=== PATIENT | male | born 1970 | race Caucasian/White ===

== ENCOUNTER → 2019-10-02 | Outpatient (CLI) | payer OTHER ==
--- NOTE | 2019-10-02 16:14 | US ---
EXAMINATION TYPE: US extremity nonvasc mass LT DATE OF EXAM: 10/02/2019 COMPARISON: NONE CLINICAL HISTORY: 49-year-old male R22.9 LUMP. Palpable left lateral thigh, located high near hip for several years. Technique: Targeted scanning directly over palpable area, upper left lateral thigh. FINDINGS: Floor Representative notes: There is a 2.9 x 1.0 x 3.9 cm isoechoic, circumscribed and ovoid lesion without in ternal flow. This is situated just deep to the skin surface within the subcutaneous adipose. IMPRESSION: Targeted scanning along the lateral upper left thigh at the palpable site shows a probable 3.9 x 2.9 cm subcutaneous lipoma. If there is growth or the area is symptomatic, surgical excision can be consi dered.
== END | disposition home or self-care (01) ==
LOC: RADUSWWP 15:23
PROVIDERS: ATTEND Internal Medicine
DX: R22.42 Localized swelling, mass and lump, left lower limb (principal)

== ENCOUNTER → 2022-09-06 | Outpatient (CLI) | payer OTHER ==
[~2022-09-06] MED LIST: SODIUM CHLORIDE 0.9% 500 ML 500 ML in EMPTY BAG 1 BAG IV PRN
[2022-09-06 10:41] VITALS: RESP 16
[2022-09-06 10:54] LABS: HCT 49.9 % (39.0-53.0); HGB 16.9 gm/dL (13.0-17.5); MCH 29.4 pg (25.0-35.0); MCHC 33.9 g/dL (31.0-37.0); MCV 86.7 fL (80.0-100.0); Mean Platelet Volume 8.7; Platelet Count 181 k/uL (150-450); RBC 5.76 m/uL (4.30-5.90); RDW 12.3 % (11.5-15.5); WBC 7.2 k/uL (3.8-10.6)
[2022-09-06 11:26] VITALS: BP 125/83; PULSE 84; TEMP 98
== END ==
LOC: PROCWHC3 10:32 → EDSTATUS 11:30
PROVIDERS: ATTEND Family Medicine
DX: D45 Polycythemia vera (principal)
CPT/HCPCS: 36415; 85027; 99195

== ENCOUNTER → 2022-12-22 | Outpatient (CLI) | payer BC, OTHER ==
[2022-12-22 07:49] LABS: Basophils % (A) 0 %; Eosinophils # (A) 0.2 k/uL (0-0.7); Eosinophils % (A) 2 %; HCT 53.4 % (39.0-53.0); HGB 16.9 gm/dL (13.0-17.5); Lymphocytes # (A) 1.5 k/uL (1.0-4.8); Lymphocytes % (A) 19 %; MCH 28.7 pg (25.0-35.0); MCHC 31.7 g/dL (31.0-37.0); MCV 90.4 fL (80.0-100.0); Mean Platelet Volume 8.5; Monocytes # (A) 0.5 k/uL (0-1.0); Monocytes % (A) 6 %; Neutrophils # (A) 5.6 k/uL (1.3-7.7); Neutrophils % (A) 71 %; Platelet Count 209 k/uL (150-450); RBC 5.91 m/uL (4.30-5.90); RDW 12.4 % (11.5-15.5); WBC 7.9 k/uL (3.8-10.6)
[2022-12-22 08:00] VITALS: PULSE 75; RESP 16; TEMP 98.2
[2022-12-22 08:04] LABS: ALT 26 U/L (4-49); AST 24 U/L (17-59); African American GFR (CKD) >90 (>60 ml/min/1.73 sqM); Albumin 4.2 g/dL (3.5-5.0); Alkaline Phosphatase 64 U/L (38-126); Anion Gap 6 mmol/L; Blood Urea Nitrogen 12 mg/dL (9-20); Calcium 8.7 mg/dL (8.4-10.2); Carbon Dioxide 30 mmol/L (22-30); Chloride 104 mmol/L (98-107); Glucose 91 mg/dL (74-99); Non-African American GFR(CKD) >90 (>60 ml/min/1.73 sqM); Potassium 4.4 mmol/L (3.5-5.1); Sodium 140 mmol/L (137-145); Total Bilirubin 0.8 mg/dL (0.2-1.3)
[2022-12-22 08:33] VITALS: BP 125/84
[2022-12-22 18:37] LABS: Chol/HDL Ratio 4.31 Ratio; LDL Cholesterol,Calculated 152.7 mg/dL (0.0-131.0)
== END ==
LOC: PROCWHC3 07:07
PROVIDERS: ATTEND Family Medicine
DX: D75.1 Secondary polycythemia (principal); E78.00 Pure hypercholesterolemia, unspecified
CPT/HCPCS: 80061; 80053; 85025; 99195; 36415; G0103

== ENCOUNTER → 2023-04-12 | Outpatient (CLI) | payer BC ==
[2023-04-12 09:35] VITALS: RESP 16; TEMP 97.6
[2023-04-12 09:57] LABS: Basophils % (A) 0 %; Eosinophils # (A) 0.2 k/uL (0-0.7); Eosinophils % (A) 2 %; HCT 54.4 % (39.0-53.0); HGB 18.5 gm/dL (13.0-17.5); Lymphocytes % (A) 27 %; MCH 29.9 pg (25.0-35.0); Mean Platelet Volume 8.7; Monocytes # (A) 0.5 k/uL (0-1.0); Monocytes % (A) 7 %; Neutrophils # (A) 4.6 k/uL (1.3-7.7); Neutrophils % (A) 61 %; Platelet Count 211 k/uL (150-450); RBC 6.19 m/uL (4.30-5.90); RDW 12.6 % (11.5-15.5); WBC 7.4 k/uL (3.8-10.6)
[2023-04-12 10:24] VITALS: BP 137/93; PULSE 68
== END ==
LOC: PROCWHC3 09:17
PROVIDERS: ATTEND Family Medicine
DX: D75.1 Secondary polycythemia (principal)
CPT/HCPCS: 36415; 85025; 99195

== ENCOUNTER → 2023-05-24 | Outpatient (CLI) | payer BC ==
[2023-05-24 19:57] LABS: HCT 51.2 % (39.6-50.0); HGB 16.7 d/dL (13.0-17.0); MCH 28.4 pg (27.0-32.0); MCHC 32.6 d/dL (32.0-37.0); MCV 86.9 FL (80.0-97.0); Mean Platelet Volume 11.6 FL (9.5-12.2); NRBC Per 100 WBC 0 X 10*3/uL (0.00-0.01); Platelet Count 251 X 10*3/uL (140-440); RBC 5.89 X 10*6/uL (4.40-5.60); RDW 12.6 % (11.5-14.5); WBC 7.33 X 10*3/uL (4.50-10.00)
[2023-05-24 20:39] LABS: Insulin Level 9.2 mIU/mL (3.0-25.0)
[2023-05-24 20:58] LABS: % Iron Saturation 26.75 (15.00-50.00); ALT 34 U/L (10-49); AST 23 U/L (14-35); Albumin 4.5 d/dL (3.8-4.9); Albumin/Globulin Ratio 2.05 Ratio (1.60-3.17); Alkaline Phosphatase 67 U/L (41-126); BUN/Creat Ratio 10.64 Ratio (12.00-20.00); Blood Urea Nitrogen 11.7 mg/dL (9.0-27.0); Calcium 9.4 mg/dL (8.7-10.3); Carbon Dioxide 26.5 mmol/L (21.6-31.8); Chloride 105 mmol/L (96-109); Ferritin 42.8 ng/mL (22.0-322.0); GGT 25 U/L (0-73); Globulin 2.2 d/dL (1.6-3.3); Glucose 87 mg/dL (70-110); Iron 88 UG/DL (65-175); LDL Cholesterol,Calculated 117.9 mg/dL (0.0-131.0); Potassium 4.4 mmol/L (3.5-5.5); Sodium 144 mmol/L (135-145); T4, Free (Free Thyroxine) 1.22 ng/dL (0.80-1.80); Testosterone >1400.00 ng/dL (86.98-780.10); Total Bilirubin 0.4 mg/dL (0.3-1.2); Total Iron Binding Capacity 329 UG/DL (228-460); Total Protein 6.7 d/dL (6.2-8.2)
[2023-05-24 21:03] LABS: Erythrocyte Sedimentation Rate 5 mm/Hr (0-20)
[2023-05-24 21:11] LABS: C Reactive Protein, High Sens <0.150 mg/L (0.000-3.000); Estradiol <20.0 pg/mL
[2023-05-24 23:08] LABS: Thyroid Peroxidase Antibodies <9.0 U/mL (0.0-33.0)
== END | disposition home or self-care (01) ==
LOC: LABWHC1 13:06
PROVIDERS: ATTEND Physician Assistant
DX: I10 Essential (primary) hypertension (principal); D64.9 Anemia, unspecified; M06.9 Rheumatoid arthritis, unspecified; R73.09 Other abnormal glucose; E55.9 Vitamin D deficiency, unspecified; E23.7 Disorder of pituitary gland, unspecified; E78.49 Other hyperlipidemia; E03.9 Hypothyroidism, unspecified; N41.9 Inflammatory disease of prostate, unspecified; E72.10 Disorders of sulfur-bearing amino-acid metabolism, unspecified; E53.9 Vitamin B deficiency, unspecified
CPT/HCPCS: 36415; 80053; 80061; 82306; 82533; 82607; 82627; 82670; 82728; 82977; 83036; 83090; 83525; 83540; 83550; 84153; 84402; 84403; 84439; 84443; 84481; 85027; 85652; 86141; 86376; 86800

== ENCOUNTER → 2023-09-14 | Outpatient (CLI) | payer BC ==
[2023-09-14 13:16] LABS: HCT 52.1 % (39.0-53.0); HGB 17.5 gm/dL (13.0-17.5); MCH 29.4 pg (25.0-35.0); MCHC 33.5 g/dL (31.0-37.0); MCV 87.6 fL (80.0-100.0); Mean Platelet Volume 8.6; Platelet Count 196 k/uL (150-450); RBC 5.95 m/uL (4.30-5.90); RDW 12.9 % (11.5-15.5); WBC 7.8 k/uL (3.8-10.6)
[2023-09-14 13:22] VITALS: RESP 16; TEMP 98
[2023-09-14 14:20] VITALS: BP 134/84; PULSE 82
== END ==
LOC: PROCWHC3 12:42
PROVIDERS: ATTEND Physician Assistant
DX: D75.1 Secondary polycythemia (principal)
CPT/HCPCS: 36415; 85027; 99195

== ENCOUNTER → 2023-12-14 | Outpatient (CLI) | payer BC ==
[2023-12-14 07:56] LABS: HCT 52.9 % (39.0-53.0); HGB 17.2 gm/dL (13.0-17.5); MCH 28.2 pg (25.0-35.0); MCHC 32.5 g/dL (31.0-37.0); MCV 86.5 fL (80.0-100.0); Mean Platelet Volume 8.9; Platelet Count 191 k/uL (150-450); RBC 6.11 m/uL (4.30-5.90); RDW 13.4 % (11.5-15.5); WBC 7.9 k/uL (3.8-10.6)
[2023-12-14 08:08] VITALS: RESP 16; TEMP 97.5
[2023-12-14 08:58] VITALS: BP 137/87; PULSE 76
[2023-12-14 19:49] LABS: HIV 2 AB Non-Reactive (Non-Reactive); HIV AB P24 Non-Reactive (Non-Reactive); HIV P24 AG Non-Reactive (Non-Reactive)
== END ==
LOC: PROCWHC3 07:28
PROVIDERS: ATTEND Physician Assistant
DX: D75.1 Secondary polycythemia (principal); Z11.4 Encounter for screening for human immunodeficiency virus [HIV]
CPT/HCPCS: 36415; 85027; 87390; 99195

== ENCOUNTER → 2024-02-28 | Outpatient (CLI) | payer BC ==
[2024-02-28 08:07] VITALS: TEMP 98
[2024-02-28 08:33] LABS: HCT 54.9 % (39.0-53.0); HGB 17.4 gm/dL (13.0-17.5); MCH 28.1 pg (25.0-35.0); MCHC 31.6 g/dL (31.0-37.0); MCV 88.8 fL (80.0-100.0); Platelet Count 202 k/uL (150-450); RBC 6.19 m/uL (4.30-5.90); RDW 13.6 % (11.5-15.5); WBC 7.5 k/uL (3.8-10.6)
[2024-02-28 08:59] VITALS: BP 144/88; PULSE 90; RESP 16
== END ==
LOC: PROCWHC3 07:51
PROVIDERS: ATTEND Physician Assistant
DX: D75.1 Secondary polycythemia (principal)
CPT/HCPCS: 36415; 85027; 99195

== ENCOUNTER → 2024-05-03 | Outpatient (CLI) | payer BC ==
[2024-05-03 08:57] VITALS: RESP 16
[2024-05-03 09:35] VITALS: TEMP 98.2
[2024-05-03 09:35] LABS: HGB 17.4 gm/dL (13.0-17.5); MCH 28.7 pg (25.0-35.0); MCHC 32.7 g/dL (31.0-37.0); MCV 87.5 fL (80.0-100.0); Mean Platelet Volume 7.8; Platelet Count 241 k/uL (150-450); RBC 6.06 m/uL (4.30-5.90); RDW 13.1 % (11.5-15.5); WBC 8.2 k/uL (3.8-10.6)
[2024-05-03 10:03] VITALS: BP 138/94; PULSE 62
[2024-05-03 11:24] LABS: HCT 53.7 % (39.0-53.0); HGB 17.3 gm/dL (13.0-17.5); MCH 28.3 pg (25.0-35.0); MCHC 32.3 g/dL (31.0-37.0); MCV 87.7 fL (80.0-100.0); Mean Platelet Volume 8.6; Platelet Count 254 k/uL (150-450); RBC 6.12 m/uL (4.30-5.90); RDW 13.1 % (11.5-15.5); WBC 8.1 k/uL (3.8-10.6)
[2024-05-03 11:39] LABS: ALT 39 U/L (4-49); AST 33 U/L (17-59); African American GFR (CKD) >90 (>60 ml/min/1.73 sqM); Albumin 4.6 g/dL (3.5-5.0); Alkaline Phosphatase 81 U/L (38-126); Anion Gap 11 mmol/L; Blood Urea Nitrogen 13 mg/dL (9-20); Calcium 9.8 mg/dL (8.4-10.2); Carbon Dioxide 27 mmol/L (22-30); Chloride 100 mmol/L (98-107); Glucose 88 mg/dL (74-99); Non-African American GFR(CKD) >90 (>60 ml/min/1.73 sqM); Potassium 4.6 mmol/L (3.5-5.1); Sodium 138 mmol/L (137-145); Total Bilirubin 0.8 mg/dL (0.2-1.3); Total Protein 7.2 g/dL (6.3-8.2)
[2024-05-03 11:54] LABS: T4, Free (Free Thyroxine) 1.06 ng/dL (0.78-2.19)
[2024-05-03 15:48] LABS: % Iron Saturation 28.22 (15.00-50.00); C Reactive Protein, High Sens 0.292 mg/L (0.000-3.000); Chol/HDL Ratio 4.17 Ratio; Estradiol <20.0 pg/mL; Ferritin 31.6 ng/mL (22.0-322.0); GGT 29 U/L (0-73); Iron 103 UG/DL (65-175); LDL Cholesterol,Calculated 151.4 mg/dL (0.0-131.0); Total Iron Binding Capacity 365 UG/DL (228-460)
[2024-05-03 15:55] LABS: Thyroid Peroxidase Antibodies <9.0 U/mL (0.0-33.0)
[2024-05-03 19:35] LABS: DHEA Sulfate 83.6 UG/DL (34.5-568.9); Insulin Level 15.5 mIU/mL (3.0-25.0)
[2024-05-04 01:30] LABS: Erythrocyte Sedimentation Rate 7 mm/Hr (0-20)
== END | disposition home or self-care (01) ==
LOC: PROCWHC3 08:35
PROVIDERS: ATTEND Physician Assistant
DX: D75.1 Secondary polycythemia
CPT/HCPCS: 36415; 80053; 80061; 82172; 82306; 82533; 82607; 82627; 82642; 82670; 82728; 82977; 83036; 83090; 83525; 83540; 83550; 84153; 84154; 84260; 84402; 84403; 84439; 84443; 84481; 85027; 85652; 86141; 86376; 86800; 99195

== ENCOUNTER → 2024-07-30 | Outpatient (CLI) | payer BC ==
[~2024-07-30] MED LIST changes: +SODIUM CHLORIDE 0.9% 250 ML in EMPTY BAG 1 BAG IV PRN
[2024-07-30 07:39] VITALS: RESP 16; TEMP 97.6
[2024-07-30 07:51] LABS: Basophils % (A) 0 %; Eosinophils # (A) 0.3 k/uL (0-0.7); Eosinophils % (A) 6 %; HCT 51.6 % (39.0-53.0); HGB 16.9 gm/dL (13.0-17.5); Lymphocytes # (A) 1.6 k/uL (1.0-4.8); Lymphocytes % (A) 28 %; MCH 28.1 pg (25.0-35.0); MCHC 32.7 g/dL (31.0-37.0); Mean Platelet Volume 8.6; Monocytes # (A) 0.5 k/uL (0-1.0); Monocytes % (A) 8 %; Neutrophils # (A) 3.2 k/uL (1.3-7.7); Neutrophils % (A) 56 %; Platelet Count 218 k/uL (150-450); RDW 13.3 % (11.5-15.5); WBC 5.7 k/uL (3.8-10.6)
[2024-07-30 08:10] LABS: ALT 34 U/L (4-49); AST 25 U/L (17-59)
[2024-07-30 08:35] VITALS: BP 139/76; PULSE 88
[2024-07-30 10:59] LABS: Ferritin 44.5 ng/mL (22.0-322.0)
[2024-07-30 11:00] LABS: Estradiol <20.0 pg/mL
== END ==
LOC: PROCWHC3 07:20
PROVIDERS: ATTEND Physician Assistant
DX: D75.1 Secondary polycythemia (principal); D64.9 Anemia, unspecified; R73.09 Other abnormal glucose; K76.9 Liver disease, unspecified; E34.9 Endocrine disorder, unspecified; E55.9 Vitamin D deficiency, unspecified; E72.10 Disorders of sulfur-bearing amino-acid metabolism, unspecified
CPT/HCPCS: 36415; 82306; 82670; 82728; 83036; 83090; 83525; 84402; 84450; 84460; 85025; 99195

== ENCOUNTER → 2024-10-22 | Outpatient (CLI) | payer BC ==
[2024-10-22 07:57] VITALS: RESP 16; TEMP 98
[2024-10-22 08:49] LABS: HCT 54.4 % (39.0-53.0); HGB 17.2 gm/dL (13.0-17.5); MCH 27.9 pg (25.0-35.0); MCHC 31.7 g/dL (31.0-37.0); Mean Platelet Volume 7.9; Platelet Count 220 k/uL (150-450); RBC 6.18 m/uL (4.30-5.90); RDW 13.2 % (11.5-15.5); WBC 6.2 k/uL (3.8-10.6)
[2024-10-22 09:12] LABS: ALT 44 U/L (4-49); AST 32 U/L (17-59); African American GFR (CKD) >90 (>60 ml/min/1.73 sqM); Albumin 4.5 g/dL (3.5-5.0); Alkaline Phosphatase 95 U/L (38-126); Anion Gap 8 mmol/L; Blood Urea Nitrogen 11 mg/dL (9-20); Calcium 9.4 mg/dL (8.4-10.2); Carbon Dioxide 30 mmol/L (22-30); Chloride 101 mmol/L (98-107); Glucose 111 mg/dL (74-99); Non-African American GFR(CKD) >90 (>60 ml/min/1.73 sqM); Potassium 4.7 mmol/L (3.5-5.1); Sodium 139 mmol/L (137-145); Total Bilirubin 0.6 mg/dL (0.2-1.3); Total Protein 7.3 g/dL (6.3-8.2)
[2024-10-22 09:15] VITALS: BP 149/87; PULSE 99
[2024-10-22 15:32] LABS: Thyroid Peroxidase Antibodies 11.7 U/mL (0.0-33.0)
[2024-10-22 15:34] LABS: Erythrocyte Sedimentation Rate 3 mm/Hr (0-20)
[2024-10-22 15:53] LABS: Chol/HDL Ratio 5.57 Ratio; Estradiol <20.0 pg/mL; LDL Cholesterol,Calculated 189.3 mg/dL (0.0-131.0)
[2024-10-22 15:54] LABS: % Iron Saturation 23.88 (15.00-50.00); Ferritin 29.9 ng/mL (22.0-322.0); GGT 26 U/L (0-73); Iron 91 UG/DL (65-175); Total Iron Binding Capacity 381 UG/DL (228-460)
== END ==
LOC: PROCWHC3 07:29
PROVIDERS: ATTEND Physician Assistant
DX: D45 Polycythemia vera (principal); M06.9 Rheumatoid arthritis, unspecified; D64.9 Anemia, unspecified; E78.5 Hyperlipidemia, unspecified; E03.9 Hypothyroidism, unspecified; N41.9 Inflammatory disease of prostate, unspecified; I10 Essential (primary) hypertension; E72.10 Disorders of sulfur-bearing amino-acid metabolism, unspecified; E34.9 Endocrine disorder, unspecified; E55.9 Vitamin D deficiency, unspecified; E23.7 Disorder of pituitary gland, unspecified; E53.9 Vitamin B deficiency, unspecified; E11.9 Type 2 diabetes mellitus without complications; E78.9 Disorder of lipoprotein metabolism, unspecified; F41.1 Generalized anxiety disorder
CPT/HCPCS: 36415; 80053; 80061; 82172; 82306; 82533; 82607; 82627; 82642; 82670; 82728; 82977; 83036; 83090; 83525; 83540; 83550; 84153; 84154; 84260; 84402; 84403; 84443; 85027; 85652; 86141; 86376; 86800; 99195